=== PATIENT | female | born 1995 | race Caucasian/White ===

== ENCOUNTER 2016-08-02 19:51 | Emergency (ER) | payer BC ==
[~2016-08-02] VITALS: Ht 162.6 cm; Wt 113.4 kg
[2016-08-02 19:55] VITALS: Ht 162.6 cm; Wt 113.4 kg
[2016-08-02 20:12] VITALS: PULSE 98; TEMP 98
[2016-08-02] MEDS ORDERED: AMO500 PO (20:14)
[2016-08-02] MEDS ORDERED: IBUP-1542 PO (20:14)
--- NOTE | 2016-08-02 20:19 | ERD ---
ER Documentation Chief Complaint Date/Time DATE: 08/02/16 TIME: 20:15 Chief Complaint SORE THROAT X 2 WEEKS AND FEVER HPI 20-year-old female presents here in emergency department for complaints of sore throat, fever for the last 2 weeks. Patient describes pain as throbbing, 6/10 scale, is worse upon swallowing. Patient started coughing 2 days ago because of feeling irritated in the throat, does not have any coughing before that. Patient denies any stridor or shortness of breath. Patient denies any wheezing. Patient denies any taking any medication to help with symptoms. Patient denies any sick contacts. ROS All systems reviewed and are negative except as per history of present illness. Medications Home Meds Active Scripts Ibuprofen* (Motrin*) 600 Mg Tab, 600 MG PO Q6H Y for PAIN AND OR ELEVATED TEMP, #30 TAB Prov:JONO DIAZ [employer] 08/02/16 Amoxicillin* (Amoxicillin*) 500 Mg Cap, 500 MG PO TID for 10 Days, CAP Prov:JONO DIAZ [employer] 08/02/16 Reported Medications [None] No Conflict Check 06/15/12 Allergies Allergies: Coded Allergies: No Known Allergy (Unverified , 06/15/12) PMhx/Soc Medical and Surgical Hx: pt denies Medical Hx, pt denies Surgical Hx History of Surgery: No Anesthesia Reaction: No Hx Neurological Disorder: No Hx Respiratory Disorders: No Hx Cardiac Disorders: No Hx Psychiatric Problems: No Hx Miscellaneous Medical Probl: No Hx Alcohol Use: No Hx Substance Use: No Hx Tobacco Use: No FmHx Family History: No coronary disease, No diabetes, No other Physical Exam Vitals Vital Signs Date Time Temp Pulse Resp B/P Pulse Ox O2 Delivery O2 Flow Rate FiO2 08/02/16 20:12 98.0 98 08/02/16 19:55 97.9 106 20 165/91 98 Physical Exam GENERAL: The patient is well developed and appropriate for usual state of health, in no apparent distress. HEENT: Atraumatic. Ears: Normal tympanic membrane, no erythema or bulging. No ear canal swelling. No ear discharge. Nose: normal nasal turbinates, no erythema or swelling. Normal nasal discharge. Throat: oropharynx erythematous with + tonsillar swelling or tonsillar exudates noted. No lymphadenopathy. CHEST: Clear to auscultation bilaterally. There are no rales, wheezes or rhonchi. HEART: Regular rate and rhythm. No murmurs, clicks, rubs or gallops. No S3 or S4. ABDOMEN: Soft, nontender and nondistended. Good bowel sounds. No rebound or guarding. No gross peritonitis. No gross organomegaly or masses. No Hoffmann sign or McBurney point tenderness. BACK: No midline or flank tenderness. EXTREMITIES: Equal pulses bilaterally. There is no peripheral clubbing, cyanosis or edema. No focal swelling or erythema. Full range of motion. Grossly neurovascularly intact. NEURO: Alert and oriented. Cranial nerves 2-12 intact. Motor strength in all 4 extremities with 5/5 strength. Sensation grossly intact. Normal speech and gait. SKIN: There is no apparent rash or petechia. The skin is warm and dry. HEMATOLOGIC AND LYMPHATIC: There is no evidence of excessive bruising or lymphedema. No gross cervical, axillary, or inguinal lymphadenopathy. Procedures/MDM Medical decision making: Patient symptoms most likely consistent with acute bacterial pharyngitis, most likely strep throat. Low suspicion for mononucleosis , pharyngitis, epiglottitis, oral airway obstruction not noted at this time. No symptoms of sepsis at this time. Patient appears well and is hemodynamically stable. Patient was given for amoxicillin, ibuprofen, is advised to do salt water gargles, rest, drink a lot of water. Patient is advised to return to emergency department immediately. Follow-up with primary care doctor in 2-3 days for reevaluation of symptoms Departure Diagnosis: Primary Impression: Acute bacterial pharyngitis Condition: Stable Patient Instructions: Pharyngitis, Strep (Presumed) Referrals: [facility] (PCP) JONO DIAZ NP Aug 02, 2016 20:18
== END 2016-08-02 20:15 | disposition home or self-care (01) ==
LOC: FTE 19:51 → E/R 20:15
DX: J02.8 Acute pharyngitis due to other specified organisms (principal); B96.89 Other specified bacterial agents as the cause of diseases classified elsewhere
CPT/HCPCS: 99283